=== PATIENT | male | born 1965 | race Caucasian/White ===

== ENCOUNTER 2018-09-28 22:01 | Emergency (ER) | payer BC ==
[2018-09-28 22:06] VITALS: BMI 22.8
[2018-09-28 22:12] VITALS: O2SAT 97
[2018-09-28] MEDS ORDERED: DiphenhydrAMINE 50 mg/ml Inj IVP STA (22:28)
[2018-09-28] MEDS ORDERED: Sodium Chloride 0.9% 500 ML IV STA (22:29)
--- NOTE | 2018-09-28 22:38 | ED PDOC ---
Arrival/HPI - General Chief Complaint: Headache Time Seen by Provider: 09/28/18 22:16 Historian: Patient - History of Present Illness Narrative History of Present Illness (Text): 09/28/18 22:29 53 year old male, whose past medical history includes Cholecystectomy, history of polyps and H-Pylori, presents complaining of intermittent headache for the past 2 days associated with nausea and vomiting. Patient states the headache is localized to the right-side and describes the pain as a throbbing sensation. Patient reports he had an endoscopy and colonoscopy done diagnosed with H-Pylori on antibiotics. Patient reports one episode of vomiting today and also reports epigastric abdominal pain, but denies any fever, chills, chest pain, shortness of breath, diarrhea, urinary symptoms, back pain, neck pain, dizziness, or any other complaints. PMD: Dr. Garcia Time/Duration: Other (2 days) Symptom Onset: Gradual Symptom Course: Intermittent Activities at Onset: Light Context: Home Past Medical History - Provider Review Nursing Documentation Reviewed: Yes - Infectious Disease Hx of Infectious Diseases: None - Cardiac Hx Cardiac Disorders: No - Pulmonary Hx Respiratory Disorders: No - Neurological Hx Neurological Disorder: No - HEENT Hx HEENT Disorder: No - Renal Hx Renal Disorder: No - Endocrine/Metabolic Hx Endocrine Disorders: No - Hematological/Oncological Hx Blood Disorders: No - Integumentary Hx Dermatological Disorder: No - Musculoskeletal/Rheumatological Hx Musculoskeletal Disorders: No - Gastrointestinal Hx Gastrointestinal Disorders: No - Genitourinary/Gynecological Hx Genitourinary Disorders: No Other/Comment: H. Pylori - Psychiatric Hx Psychophysiologic Disorder: No Hx Substance Use: No - Surgical History Hx Appendectomy: Yes Hx Cholecystectomy: Yes - Anesthesia Hx Anesthesia Reactions: Yes (VOMITING) Hx Malignant Hyperthermia: No - Suicidal Assessment Feels Threatened In Home Enviroment: No Family/Social History - Physician Review Nursing Documentation Reviewed: Yes Family/Social History: No Known Family HX Smoking Status: Never Smoked Hx Alcohol Use: No Hx Substance Use: No Allergies/Home Meds Allergies/Adverse Reactions: Allergies morphine Allergy (Verified 09/28/18 22:06) ANAPHYLAXIS Penicillins Allergy (Verified 09/28/18 22:06) HIVES Home Medications: Home Meds Medication Instructions Recorded Confirmed RX: Esomeprazole Magnesium [Nexium] 40 mg PO DAILY 09/28/18 09/28/18 Review of Systems - Physician Review All systems were reviewed & negative as marked: Yes - Review of Systems Constitutional: absent: Fevers, Other (Chills) Respiratory: absent: SOB Cardiovascular: absent: Chest Pain Gastrointestinal: Abdominal Pain, Nausea, Vomiting. absent: Diarrhea Genitourinary Male: absent: Dysuria, Frequency, Hematuria Musculoskeletal: absent: Back Pain Neurological: Headache. absent: Dizziness Physical Exam Vital Signs Reviewed: Yes Vital Signs Temp Pulse Resp BP Pulse Ox 09/28/18 22:11 98.4 F 57 L 17 123/76 97 Temperature: Afebrile Blood Pressure: Normal Pulse: Bradycardic Respiratory Rate: Normal Appearance: Positive for: Well-Appearing, Non-Toxic, Comfortable Pain Distress: None Mental Status: Positive for: Alert and Oriented X 3 - Systems Exam Head: Present: Atraumatic, Normocephalic Pupils: Present: PERRL Extroacular Muscles: Present: EOMI Conjunctiva: Present: Normal Mouth: Present: Moist Mucous Membranes Neck: Present: Normal Range of Motion Respiratory/Chest: Present: Clear to Auscultation, Good Air Exchange. No: Respiratory Distress, Accessory Muscle Use Cardiovascular: Present: Regular Rate and Rhythm, Normal S1, S2. No: Murmurs Abdomen: No: Tenderness, Distention, Peritoneal Signs Back: Present: Normal Inspection Upper Extremity: Present: Normal Inspection. No: Cyanosis, Edema Lower Extremity: Present: Normal Inspection. No: Edema Neurological: Present: GCS=15, CN II-XII Intact, Speech Normal Skin: Present: Warm, Dry, Normal Color. No: Rashes Psychiatric: Present: Alert, Oriented x 3, Normal Insight, Normal Concentration Medical Decision Making ED Course and Treatment: 09/28/18 22:29 Impression: 53 year old male presents complaining of intermittent right-sided headache for the past 2 days associated with epigastric abdominal pain, nausea, and vomiting. no thunderclap features. ro abdomianl cardiac, intracranial pathology. Plan: -- CT head w/o contrast -- EKG -- Labs -- Benadryl, Protonix Inj, Reglan, IV fluids -- Urinalysis -- Reassess and disposition Prior Visits: Notes and results from previous visits were reviewed. Progress Notes: 09/28/18 22:35 EKG shows Sinus Bradycardia at [address]/T wave changes. Interpreted by me EXAM: CT Head without Intravenous Contrast Electronically signed on Sep 28, 2018 10:54:29 PM EST by: Ricardo Gilliam M.D. IMPRESSION: No acute intracranial abnormality. 09/28/18 23:35 On reevaluation the patient feels better and is in no acute distress. I have discussed the results and plan with the patient, who expresses understanding. Patient given the opportunity to ask question, all questions were answered and there is agreement with the plan to discharge the patient home. Patient is stable for discharge. Patient was instructed to follow up with physician/clinic in 1-2 days or return if symptoms persist/worsen or new concerning symptoms arise. 09/29/18 05:17 labs neg pt states all symptosm resolved. advised pt will need close outpt fu with neuro strict return precautions advised. - Lab Interpretations I have reviewed the lab results: Yes - RAD Interpretation Business Case Analyst: Radiologist - EKG Interpretation Interpreted by ED Physician: Yes Type: 12 lead EKG - Scribe Statement The provider has reviewed the documentation as recorded by the Prabha Orozco Provider Scribe Attestation: All medical record entries made by the Prabha were at my direction and personally dictated by me. I have reviewed the chart and agree that the record accurately reflects my personal performance of the history, physical exam, medical decision making, and the department course for this patient. I have also personally directed, reviewed, and agree with the discharge instructions and disposition. Disposition/Present on Arrival - Present on Arrival Any Indicators Present on Arrival: No History of DVT/PE: No History of Uncontrolled Diabetes: No Urinary Catheter: No History of Decub. Ulcer: No History Surgical Site Infection Following: None - Disposition Have Diagnosis and Disposition been Completed?: Yes Diagnosis: Headache, Abdominal pain Disposition: HOME/ ROUTINE Disposition Time: 22:00 Patient Problems: Current Active Problems Problem Status Onset Abdominal pain Acute Headache Acute Condition: STABLE Discharge Instructions (ExitCare): Migraine Headache (DC), Acute Abdomen (Belly Pain), Adult (DC) Additional Instructions: follow up with specailsits and your doctor. you may need additional testing and workup as an outpatient. return to any er with worsening. Prescriptions: Acetaminophen/Butalbital/Caf [Fioricet] 1 tab PO Q8 PRN #20 tab PRN Reason: Headache Referrals: [facility] [Outside] - Follow up with primary [facility] [place] - Follow up with primary Fredo Block MD [Staff Provider] - Follow up with primary Forms: [facility] ([place]in[employer])
[2018-09-28 23:22] LABS: BASO # 0.03 K/mm3 (0.0-2.0); BASO % 0.3 % (0.0-3.0); EOS # 0.1 (0.0-0.7); EOS % 1.3 % (1.5-5.0); GRAN # 7.68 (1.4-6.5); GRAN % 74.1 % (50.0-68.0); HEMOGLOBIN 14.3 g/dL (14.0-18.0); LYMPH # 2.1 (1.2-3.4); LYMPH % 19.9 % (22.0-35.0); MEAN CELL VOLUME 86.9 fl (80.0-105.0); MEAN CORPUSCULAR HEMOGLOBIN 29.7 pg (25.0-35.0); MEAN CORPUSCULAR HGB CONC 34.2 g/dl (31.0-37.0); MEAN PLATELET VOLUME 9.1 fl (7.0-11.0); MONO # 0.5 (0.1-0.6); MONO % 4.4 % (1.0-6.0); RBC 4.81 10^6/uL (3.5-6.1); RED CELL DISTRIBUTION WIDTH 13.9 % (11.5-14.5); WHITE BLOOD COUNT 10.4 10^3/uL (4.5-11.0)
[2018-09-28 23:33] LABS: INR 1.13; PARTIAL THROMBOPLASTIN TIME 29.5 Seconds (25.1-36.5)
[2018-09-28 23:34] LABS: ALB/GLOB RATIO 1.2 (1.1-1.8); ALT/SGPT 75 U/L (7-56); AST/SGOT 48 U/L (17-59); BLOOD UREA NITROGEN 17 mg/dL (7-21); CALCIUM 8.8 mg/dL (8.4-10.5); GFR NON-AFRICAN AMERICAN > 60; LIPASE 52 U/L (23-300)
[2018-09-28 23:45] LABS: TROPONIN I < 0.01 ng/mL
[2018-09-29 05:50] VITALS: BP 120/70; PULSE 59; RESP 18; TEMP 98
--- NOTE | 2018-09-29 09:54 | CARD ---
APPROVED REPORT Date of service: 09/28/2018 EKG Measurement Heart [id number] <Conclusion> Sinus bradycardia Otherwise normal ECG
--- NOTE | 2018-09-29 10:20 | CT ---
Date of service: 09/28/2018 PROCEDURE: CT HEAD WITHOUT CONTRAST. HISTORY: pineda COMPARISON: None available. TECHNIQUE: Axial computed tomography images were obtained through the head/brain without intravenous contrast. Radiation dose: Total exam DLP = 1088.3 mGy-cm. This CT exam was performed using one or more of the following dose reduction techniques: Automated exposure control, adjustment of the mA and/or kV according to patient size, and/or use of iterative reconstruction technique. FINDINGS: HEMORRHAGE: No intracranial hemorrhage. BRAIN: No mass effect or edema. No atrophy or chronic microvascular ischemic changes. VENTRICLES: Unremarkable. No hydrocephalus. CALVARIUM: Unremarkable. PARANASAL SINUSES: Unremarkable as visualized. No significant inflammatory changes. MASTOID AIR CELLS: Unremarkable as visualized. No inflammatory changes. OTHER FINDINGS: The report concurs with the preliminary [facility] report IMPRESSION: No acute intracranial findings
== END 2018-09-29 01:55 | disposition home or self-care (01) ==
LOC: ED 22:01
DX: R51 Headache (principal); R10.9 Unspecified abdominal pain; Z90.49 Acquired absence of other specified parts of digestive tract
CPT/HCPCS: 70450; 80053; 82550; 83615; 83690; 83735; 84484; 85025; 85610; 85651; 85730; 93005; 96374; 96375; 99285; C9113; J1200; J2765; J7040

== ENCOUNTER 2019-01-15 06:29 | Emergency (ER) | payer BC ==
[2019-01-15 06:48] VITALS: BMI 24.0
[2019-01-15] MEDS ORDERED: Sodium Chloride 0.9% 1,000 ML IV ONE (07:13)
[2019-01-15 07:57] LABS: BASO # 0.01 K/mm3 (0.0-2.0); BASO % 0.1 % (0.0-3.0); EOS % 0.3 % (1.5-5.0); HEMOGLOBIN 15.5 g/dL (14.0-18.0); LYMPH # 0.4 (1.2-3.4); LYMPH % 3.7 % (22.0-35.0); MEAN CORPUSCULAR HEMOGLOBIN 29.4 pg (25.0-35.0); MEAN CORPUSCULAR HGB CONC 33.4 g/dl (31.0-37.0); MEAN PLATELET VOLUME 9.6 fl (7.0-11.0); MONO # 0.9 (0.1-0.6); MONO % 8.3 % (1.0-6.0); PLATELET COUNT 223 10^3/uL (120.0-450.0); RBC 5.27 10^6/uL (3.5-6.1); RED CELL DISTRIBUTION WIDTH 13.8 % (11.5-14.5); WHITE BLOOD COUNT 10.7 10^3/uL (4.5-11.0)
--- NOTE | 2019-01-15 08:00 | ED PDOC ---
Arrival/HPI - General Chief Complaint: Abdominal Pain Historian: Patient - History of Present Illness Narrative History of Present Illness (Text): 01/15/19 07:57 53 year old male, whose past medical history includes Cholecystectomy, appendectomy, kidney stones, hernia, history of polyps and H-Pylori, presents to the emergency department complaining of abdominal pain associated with vomiting and diarrhea that began yesterday. Patient reports he had chicken and rice yesterday from work. He reports 4 episodes of nonbloody nonbilious vomiting. Patient recently had an endoscopy and a colonoscopy 3 months ago where he was diagnosed and treated for H-Pylori. Patient also reports of a headache, but denies any fever, chills, chest pain, shortness of breath, urinary symptoms, back pain, neck pain, dizziness, or any other complaints. PMD: Dr. Garcia Time/Duration: 24 hours Symptom Onset: Gradual Symptom Course: Unchanged Activities at Onset: Light Context: Home Past Medical History - Provider Review Nursing Documentation Reviewed: Yes - Infectious Disease Hx of Infectious Diseases: None - Cardiac Hx Cardiac Disorders: No - Pulmonary Hx Respiratory Disorders: No - Neurological Hx Neurological Disorder: No - HEENT Hx HEENT Disorder: No - Renal Hx Renal Disorder: Yes Hx Kidney Stones: Yes - Endocrine/Metabolic Hx Endocrine Disorders: No - Hematological/Oncological Hx Blood Disorders: No - Integumentary Hx Dermatological Disorder: No - Musculoskeletal/Rheumatological Hx Musculoskeletal Disorders: No - Gastrointestinal Hx Gastrointestinal Disorders: No Other/Comment: H. Pylori - Genitourinary/Gynecological Hx Genitourinary Disorders: No - Psychiatric Hx Psychophysiologic Disorder: No Hx Substance Use: No - Surgical History Hx Appendectomy: Yes Hx Cholecystectomy: Yes Hx Parathyroidectomy: Yes (R knee surgery) Hx Tonsillectomy: Yes Other/Comment: Kidney stone removal - Anesthesia Hx Anesthesia Reactions: Yes (VOMITING) Hx Malignant Hyperthermia: No - Suicidal Assessment Feels Threatened In Home Enviroment: No Family/Social History - Physician Review Nursing Documentation Reviewed: Yes Family/Social History: No Known Family HX Smoking Status: Light Smoker < 10 Cigarettes Daily Hx Alcohol Use: No Hx Substance Use: No Allergies/Home Meds Allergies/Adverse Reactions: Allergies morphine Allergy (Verified 01/15/19 06:49) ANAPHYLAXIS Penicillins Allergy (Verified 01/15/19 06:49) HIVES Home Medications: Home Meds Medication Instructions Recorded Confirmed Esomeprazole Magnesium [Nexium] 40 mg PO DAILY 09/28/18 09/28/18 Review of Systems - Physician Review All systems were reviewed & negative as marked: Yes - Review of Systems Constitutional: absent: Fevers, Other (chills) Respiratory: absent: SOB Cardiovascular: absent: Chest Pain Gastrointestinal: Abdominal Pain, Diarrhea, Nausea, Vomiting Genitourinary Male: absent: Dysuria, Frequency, Hematuria Musculoskeletal: absent: Back Pain, Neck Pain Neurological: Headache. absent: Dizziness Physical Exam Vital Signs Reviewed: Yes Vital Signs Temp Pulse Resp BP Pulse Ox 01/15/19 07:53 97.9 F 81 16 117/73 97 01/15/19 06:52 98.7 F 75 16 125/77 100 Temperature: Afebrile Blood Pressure: Normal Pulse: Regular Respiratory Rate: Normal Appearance: Positive for: Well-Appearing, Non-Toxic, Comfortable Pain Distress: None Mental Status: Positive for: Alert and Oriented X 3 - Systems Exam Head: Present: Atraumatic, Normocephalic Pupils: Present: PERRL Extroacular Muscles: Present: EOMI Conjunctiva: Present: Normal Mouth: Present: Moist Mucous Membranes Neck: Present: Normal Range of Motion Respiratory/Chest: Present: Clear to Auscultation, Good Air Exchange. No: Respiratory Distress, Accessory Muscle Use Cardiovascular: Present: Regular Rate and Rhythm, Normal S1, S2. No: Murmurs Abdomen: Present: Other (mid-abdominal pain). No: Tenderness, Distention, Peritoneal Signs Back: Present: Normal Inspection Upper Extremity: Present: Normal Inspection. No: Cyanosis, Edema Lower Extremity: Present: Normal Inspection. No: Edema Neurological: Present: GCS=15, CN II-XII Intact, Speech Normal Skin: Present: Warm, Dry, Normal Color. No: Rashes Psychiatric: Present: Alert, Oriented x 3, Normal Insight, Normal Concentration Medical Decision Making ED Course and Treatment: 01/15/19 07:57 Impression: 53 year old male presents complaining of abdominal pain associated with nausea, vomiting, and diarrhea that began yesterday. Plan: -- CT Abd & Pelvis IV contrast -- EKG -- Labs -- Pepcid, IV Fluids, Toradol, Zofran Inj -- Urine Culture -- Urinalysis -- Reassess and disposition Prior Visits: Notes and results from previous visits were reviewed. Progress Notes: EKG shows NSR at 74 BPM. Interpreted by me. PROCEDURE: CT Abdomen and Pelvis with contrast Dictator : Candace Ahmadi MD Report Date : 01/15/2019 11:18:56 IMPRESSION: Findings are most compatible with acute nonspecific infectious/inflammatory enterocolitis. No bowel obstruction. 01/15/19 11:40 On re-evaluation, patient feels better and is in no acute distress. I have discussed the results and plan with the patient, who expresses understanding. Patient in agreement with plan to be discharged home. Patient is stable for discharge. Patient was instructed to follow up with physician or return if symptoms worsen or new concerning symptoms arise. - Lab Interpretations I have reviewed the lab results: Yes - RAD Interpretation Radiology Orders: 01/15/19 07:13 ABD & PELVIS IV CONTRAST ONLY [CT] [facility] Coordinator: Radiologist - EKG Interpretation Interpreted by ED Physician: Yes Type: 12 lead EKG - Medication Orders Current Medication Orders: Sodium Chloride (Sodium Chloride 0.9%) 1,000 mls @ 250 mls/hr IV .Q4H ONE Stop: 01/15/19 11:12 Last Admin: 01/15/19 07:30 Dose: 250 mls/hr eMAR Start Stop Document 01/15/19 07:30 MEGAN [facility] 07[id number] Intravenous Solution Start Date 01/15/19 Start Time 07:30 End Date 01/15/19 End time 08:30 Total Infusion Time 60 Discontinued Medications Famotidine (Pepcid) 20 mg IVP STAT STA Stop: 01/15/19 07:14 Last Admin: 01/15/19 07:36 Dose: 20 mg IVP Administration Document 01/15/19 07:36 SZKary (Rec: 01/15/19 07:44 [facility] [id number]) Charges for Administration # of IVP Administrations 1 Ketorolac Tromethamine (Toradol) 30 mg IVP STAT STA Stop: 01/15/19 07:14 Last Admin: 01/15/19 07:30 Dose: 30 mg MAR Pain Assessment Document 01/15/19 07:30 MEGAN (Rec: 01/15/19 07:44 [id number] Pain Reassessment Is this a pain reassessment? No Sleep Is patient sleeping during reassessment? No Presence of Pain Presence of Pain Yes IVP Administration Document 01/15/19 07:30 MEGAN (Rec: 01/15/19 07:44 [id number] Charges for Administration # of IVP Administrations 1 Ondansetron HCl (Zofran Inj) 4 mg IVP STAT STA Stop: 01/15/19 07:14 Last Admin: 01/15/19 07:30 Dose: 4 mg IVP Administration Document 01/15/19 07:30 Kary (Rec: 01/15/19 07:44 [id number] Charges for Administration # of IVP Administrations 1 - Scribe Statement The provider has reviewed the documentation as recorded by the Prabha Orozco Provider Scribe Attestation: All medical record entries made by the Scribe were at my direction and personally dictated by me. I have reviewed the chart and agree that the record accurately reflects my personal performance of the history, physical exam, medical decision making, and the department course for this patient. I have also personally directed, reviewed, and agree with the discharge instructions and disposition. Disposition/Present on Arrival - Present on Arrival Any Indicators Present on Arrival: No History of DVT/PE: No History of Uncontrolled Diabetes: No Urinary Catheter: No History of Decub. Ulcer: No History Surgical Site Infection Following: None - Disposition Have Diagnosis and Disposition been Completed?: Yes Diagnosis: Viral gastroenteritis Disposition: HOME/ ROUTINE Disposition Time: 11:20 Condition: IMPROVED Discharge Instructions (ExitCare): Viral Gastroenteritis, Adult (DC) Additional Instructions: DAVID DAVIS, thank you for letting us take care of you today. The emergency medical care you received today was directed at your acute symptoms. If you were prescribed any medication, please fill it and take as directed. It may take several days for your symptoms to resolve. Return to the Emergency Department if your symptoms worsen, do not improve, or if you have any other problems. Please contact your doctor or call one of the physicians/clinics you have been referred to that are listed on the Patient Visit Information form that is included in your discharge packet. Bring any paperwork you were given at discharge with you along with any medications you are taking to your follow up visit. Our treatment cannot replace ongoing medical care by a primary care provider outside of the emergency department. Thank you for allowing the [facility] team to be part of your care today. Drink plenty of fluids throughout the day to maintain hydration. Follow up with your primary care doctor in 3-5 days if you have any concerns. Prescriptions: Famotidine [Pepcid] 20 mg PO BID #14 tab Ondansetron ODT [Zofran ODT] 4 mg PO Q8 PRN #15 odt PRN Reason: Nausea/Vomiting Referrals: Chau Garcia DO [Primary Care Provider] - Follow up with primary Forms: [employer] (Polish)
[2019-01-15 08:10] LABS: ALB/GLOB RATIO 1.2 (1.1-1.8); ALT/SGPT 24 U/L (7-56); AST/SGOT 28 U/L (17-59); BLOOD UREA NITROGEN 17 mg/dL (7-21); GFR NON-AFRICAN AMERICAN > 60; LIPASE 44 U/L (23-300)
[2019-01-15 08:21] LABS: TROPONIN I < 0.01 ng/mL
[2019-01-15 08:28] LABS: LYMPHOCYTE 6 % (22.0-35.0); MONOCYTE 4 % (1.0-6.0); NEUTROPHIL 90 % (50.0-70.0); PLATELET ESTIMATE NORMAL (NORMAL)
[2019-01-15 10:01] VITALS: RESP 18
[2019-01-15 10:07] LABS: URINE BILIRUBIN NEGATIVE (NEGATIVE); URINE BLOOD TRACE-INTACT (NEGATIVE); URINE GLUCOSE (UA) NEGATIVE (NEGATIVE); URINE LEUKOCYTE ESTERASE NEGATIVE Leu/uL (NEGATIVE); URINE PROTEIN TRACE mg/dL (<30 mg/dL); URINE UROBILINOGEN 0.2 E.U./dL (<1 E.U./dL)
[2019-01-15 10:18] LABS: URINE APPEARANCE SL CLOUDY (CLEAR); URINE COLOR YELLOW (YELLOW)
[2019-01-15 10:22] LABS: URINE RBC 0 - 2 /hpf (0-2); URINE WBC 0 - 2 /hpf (0-6)
[2019-01-15] MEDS ORDERED: Iohexol 350 MG/100 ML VIAL ONE (10:32)
--- NOTE | 2019-01-15 11:22 | CT ---
Date of service: 01/15/2019 PROCEDURE: CT Abdomen and Pelvis with contrast HISTORY: abdominal pain, v/d COMPARISON: None available. TECHNIQUE: CT scan of the abdomen and pelvis was performed after administration of intravenous contrast. Oral contrast was not administered. Coronal and sagittal reformatted images were obtained. Contrast dose: Radiation dose: Total exam DLP = 311.56 mGy-cm. This CT exam was performed using one or more of the following dose reduction techniques: Automated exposure control, adjustment of the mA and/or kV according to patient size, and/or use of iterative reconstruction technique. FINDINGS: LOWER THORAX: There is subsegmental atelectasis in the lower lobes. LIVER: Normal in size with homogeneous enhancement. A tiny low-attenuation lesion in hepatic dome is too small to characterize by CT criteria no gross lesion or ductal dilatation. GALLBLADDER AND BILE DUCTS: Status post cholecystectomy. PANCREAS: Normal in size with homogeneous enhancement. No gross lesion or ductal dilatation. SPLEEN: Normal in size and appearance. ADRENALS: No discrete nodule. KIDNEYS AND URETERS: Normal in size with homogeneous enhancement. No hydronephrosis. No solid mass. VASCULATURE: No aortic aneurysm. There are minimal aortic atherosclerotic calcifications and mural plaque present. BOWEL: Evaluation of the bowel is limited in the absence of oral contrast. The proximal small bowel loops are normal in caliber. There is mild dilatation of fluid-filled mid and distal small bowel loops with mild wall enhancement. There is also fluid in the ascending colon. The transverse and left hemicolon are essentially decompressed the there is mild sigmoid diverticulosis without CT evidence for acute diverticulitis. APPENDIX: Not distinctly identified. No inflammatory changes in the right lower quadrant. PERITONEUM: No free fluid. No free air. LYMPH NODES: No enlarged lymph nodes. BLADDER: Decompressed. REPRODUCTIVE: There is moderate enlargement of the prostate gland with central coarse calcifications. BONES: No acute fracture. Within normal limits for the patient's age. OTHER FINDINGS: None. IMPRESSION: Findings are most compatible with acute nonspecific infectious/inflammatory enterocolitis. No bowel obstruction.
[2019-01-15 12:08] VITALS: BP 123/67; PULSE 75; TEMP 99; O2SAT 98
--- NOTE | 2019-01-15 12:29 | CARD ---
APPROVED REPORT Date of service: 01/15/2019 EKG Measurement Heart [id number] <Conclusion> Normal sinus rhythm Normal ECG
== END 2019-01-15 12:14 | disposition home or self-care (01) ==
LOC: ED 06:29
DX: A08.4 Viral intestinal infection, unspecified (principal); F17.210 Nicotine dependence, cigarettes, uncomplicated; R19.7 Diarrhea, unspecified
CPT/HCPCS: 74177; 80053; 81001; 82550; 83615; 83690; 83735; 84484; 85025; 87086; 93005; 96361; 96374; 96375; 99283; J1885; J2405; J7030; Q9967